=== PATIENT | female | born 1970 | race Caucasian/White ===

== ENCOUNTER 2017-04-11 14:30 | Emergency (ER) | payer MEDICAID, OTHER ==
[2017-04-11 15:11] VITALS: BP 109/61
--- NOTE | 2017-04-11 16:24 | EDM.PDOC ---
[id number]: AND BLEEDING 6 WEEKS Time Seen by Provider: 04/11/17 15:20 Source of Information: Reports: Patient, Family History Limitations: Reports: No Limitations - History of Present Illness INITIAL COMMENTS - FREE TEXT/NARRATIVE: 47-year-old female 2 para 1 who is undergoing fertilization treatment had an ultrasound 2 days ago which showed 5 week 5 day gestation sac without cardiac activity. [place] she [place] but experienced no specific trauma, she then developed fairly persistent bleeding without cramping or pain. It seems to be slowing down now but she called her fertility specialist and he asked for another ultrasound. Medically she is stable. Onset: Unknown/Unsure Severity: Mild Associated Symptoms: Reports: No Other Symptoms - Related Data Allergies Allergy/AdvReac Type Severity Reaction Status Date / Time amoxicillin Allergy Rash Verified 04/11/17 15:18 Home Meds: Home Meds Estradiol Patch 04/11/17 [History] Estradiol Pill 04/11/17 [History] Levotthoxin PO DAILY 04/11/17 [History] Progesterone,Micronized [Crinone] 1.125 gm VG 04/11/17 [History] Past Medical History Other OB/BYN History: Embryo implantation March 20 2017. EDC Nov Endocrine/Metabolic History: Reports: Hypothyroidism - Past Surgical History Other Female Surgeries/Procedures: G-2 P-1 Social & Family History - Tobacco Use Smoking Status *Q: Never Smoker - Caffeine Use Caffeine Use: Reports: None - Recreational Drug Use Recreational Drug Use: No ED ROS GENERAL - Review of Systems Review Of Systems: See Below Constitutional: Denies: Fever Respiratory: Denies: Shortness of Breath GI/Abdominal: Denies: Nausea, Vomiting Skin: Reports: No Symptoms Neurological: Denies: Headache Psychiatric: Reports: No Symptoms ED EXAM - Physical Exam Exam: See Below Exam Limited By: No Limitations General Appearance: Alert, No Apparent Distress Respiratory/Chest: No Respiratory Distress Neurological: Alert, Oriented Skin Exam: Warm, Dry Course - Vital Signs Last Recorded V/S: Last Vital Signs Temp 99.1 F 04/11/17 15:18 Pulse 55 L 04/11/17 15:18 Resp 16 04/11/17 15:18 BP 109/61 04/11/17 15:18 Pulse Ox 99 04/11/17 15:18 - Orders/Labs/Meds Orders: Active Orders 24 hr Category Date Time Status OB 1st Tri Sgl 1st Gest [US] Stat Exams 04/11/17 15:40 Ordered OB Transvaginal [US] Stat Exams 04/11/17 15:40 Ordered - Re-Assessments/Exams Free Text/Narrative Re-Assessment/Exam: 04/11/17 16:24 Pelvic exam was not repeated. A vaginal probe ultrasound was obtained. 04/11/17 16:40 The vaginal probe ultrasound fortunately revealed an intrauterine with heart tones at 96, CRL of 6 weeks 0 days. Her infertility physician was contacted and the situation discussed. Departure - Departure Time of Disposition: 17:03 Disposition: Home, Self-Care 01 Condition: Good Clinical Impression: Threatened - Discharge Information Instructions: Threatened Miscarriage, Vaginal Bleeding During , First Trimester Referrals: PCP,None [Primary Care Provider] - Forms: ED Department Discharge Care Plan Goals: Decrease activity until bleeding stops. Call your fertility specialist if worsening or concerns. - My Orders Last 24 Hours: My Active Orders 04/11/17 15:40 OB 1st Tri Sgl 1st Gest [US] Stat OB Transvaginal [US] Stat - Assessment/Plan Last 24 Hours: My Active Orders 04/11/17 15:40 OB 1st Tri Sgl 1st Gest [US] Stat OB Transvaginal [US] Stat
== END 2017-04-11 17:03 | disposition home or self-care (01) ==
LOC: JP.ED 14:30
DX: O20.0 Threatened abortion (principal); E03.9 Hypothyroidism, unspecified; Z88.1 Allergy status to other antibiotic agents
CPT/HCPCS: 76801; 76817; 99282; 99284

== ENCOUNTER 2017-04-12 17:47 | Emergency (ER) | payer MEDICAID ==
[2017-04-12 18:20] VITALS: BP 124/69
--- NOTE | 2017-04-12 18:37 | EDM.PDOC ---
ED HPI GENERAL MEDICAL PROBLEM - General Chief Complaint: [employer] Problem Stated Complaint: 6 WKS BLEEDING Time Seen by Provider: 04/12/17 18:15 Source of Information: Reports: Patient History Limitations: Reports: No Limitations - History of Present Illness INITIAL COMMENTS - FREE TEXT/NARRATIVE: Hanh is a 47 year old female who presents to the ED today with c/o vaginal bleeding and passing of clots/tissue. Patient was seen here in the ED yesterday with similar complaints but symptoms have progressed since that time. Patient is approx 5 weeks with second . This is the result of in-vitro fertilization. US yesterday showed a pole but no heart beat. Patient reports since passing tissue her bleeding has nearly stopped and her cramping has improved. Her related nausea has resolved since this morning. Patient denies feeling dizzy or lightheaded. She denies any dysuria, fever, chills. Duration: Day(s): (2) - Related Data Allergies Allergy/AdvReac Type Severity Reaction Status Date / Time amoxicillin Allergy Rash Verified 04/11/17 15:18 Home Meds: Home Meds Estradiol [Climara] 1 patch TRDERM ASDIRECTED 04/12/17 [History] Estradiol [Estradiol] 1 tab PO DAILY 04/12/17 [History] Levothyroxine 1 tab PO DAILY 04/12/17 [History] Progesterone,Micronized [Crinone] 1 supp VAG BID 04/12/17 [History] Past Medical History Other OB/BYN History: Embryo implantation March 20 2017. EDC Nov Endocrine/Metabolic History: Reports: Hypothyroidism - Past Surgical History Other Female Surgeries/Procedures: G-2 P-1 Social & Family History - Tobacco Use Smoking Status *Q: Never Smoker - Caffeine Use Caffeine Use: Reports: None - Recreational Drug Use Recreational Drug Use: No ED ROS GENERAL - Review of Systems Review Of Systems: ROS reveals no pertinent complaints other than HPI. ED EXAM - Physical Exam Exam: See Below Exam Limited By: No Limitations General Appearance: Alert, WD/WN, No Apparent Distress Throat/Mouth: Normal Inspection, Normal Oropharynx Head: Atraumatic Respiratory/Chest: No Respiratory Distress, Lungs Clear, Normal Breath Sounds Cardiovascular: Normal Peripheral Pulses, Regular Rate, Rhythm, No Murmur GI/Abdominal: Normal Bowel Sounds, Soft, Non-Tender Extremities: Normal Inspection Neurological: Alert, Oriented, CN II-XII Intact Psychiatric: Normal Affect, Normal Mood Skin Exam: Warm, Dry, Intact Lymphatic: No Adenopathy Course - Vital Signs Text/Narrative:: Hanh is a 47 year old female who presents to the ED tonight with her with increased vaginal bleeding earlier to day and passing of tissue and clots. Please refer to HPI and focused exam. Patient on exam is well hydrated, she is non toxic appear, she does not show any signs clinically of anemia. CBC returns with normal HGB. I did not find a blood type yesterday so this was done , patient is A positive and will not need Rhogam. US repeated today and US tech reports that there is no heart beat, gestational sac or pole today. Patient has findings consistent with miscarraige. There is some POC left in uterus per US Tech. Awaiting final US read when patient requested to be discharged. I feel she is stable and vaginal bleeding has slowed substantially. Reasons to return discussed. Patient will be in touch with fertility clinic tomorrow with regard to US findings today and hormones patient is currently on. Patient voiced understanding that formal read was not back yet and still requests to leave. She was discharged in stable condition. Last Recorded V/S: Last Vital Signs Temp 35.6 C 04/12/17 18:18 Pulse 74 04/12/17 18:18 Resp 14 04/12/17 18:18 BP 124/69 04/12/17 18:18 Pulse Ox 98 04/12/17 18:18 - Orders/Labs/Meds Orders: Active Orders 24 hr Category Date Time Status OB Transvaginal [US] Stat Exams 04/12/17 18:33 Ordered PATIENT RETYPE [BBK] Stat Lab 04/12/17 18:34 Results TYPE AND SCREEN [BBK] Stat Lab 04/12/17 18:34 Results Labs: Laboratory Tests 04/12/17 04/12/17 Range/Units 18:34 18:34 WBC 10.1 (4.5-11.0) K/uL RBC 3.72 (3.30-5.50) M/uL Hgb 12.3 (12.0-15.0) g/dL Hct 36.6 (36.0-48.0) % MCV 98 (80-98) fL MCH 33 H (27-31) pg MCHC 34 (32-36) % Plt Count 453 H (150-400) K/uL Neut % (Auto) 54 (36-66) % Lymph % (Auto) 37 (24-44) % [place] % (Auto) 8 H (2-6) % Eos % (Auto) 1 L (2-4) % Baso % (Auto) 1 (0-1) % Blood Type A POSITIVE Gel Antibody Screen Negative Departure - Departure Time of Disposition: 20:20 Disposition: Home, Self-Care 01 Clinical Impression: Miscarriage, Threatened Clinical Impression: (Ruled Out): Complete - Discharge Information Instructions: Miscarriage Referrals: PCP,None [Primary Care Provider] - Forms: ED Department Discharge Additional Instructions: Follow up fertility clinic tomorrow please (call them). - My Orders Last 24 Hours: My Active Orders 04/12/17 18:33 OB Transvaginal [US] Stat 04/12/17 18:34 PATIENT RETYPE [BBK] Stat TYPE AND SCREEN [BBK] Stat - Assessment/Plan Last 24 Hours: My Active Orders 04/12/17 18:33 OB Transvaginal [US] Stat 04/12/17 18:34 PATIENT RETYPE [BBK] Stat TYPE AND SCREEN [BBK] Stat
== END 2017-04-12 20:19 | disposition home or self-care (01) ==
LOC: JP.ED 17:47
DX: O20.0 Threatened abortion (principal); E03.9 Hypothyroidism, unspecified; Z88.1 Allergy status to other antibiotic agents; Z79.899 Other long term (current) drug therapy
CPT/HCPCS: 36415; 76817; 85025; 86850; 86900; 86901; 99282; 99284-25